=== PATIENT | female | born 1975 | race Caucasian/White ===

== ENCOUNTER 2023-11-15 18:17 | Emergency (ER) | payer OTHER, SELFPAY ==
[2023-11-15 18:20] VITALS: BP 160/100; BMI 21.0
[2023-11-15 18:56] VITALS: BP 160/96
[2023-11-15 19:00] VITALS: BP 147/101
[2023-11-15 19:23] LABS: % Basophils 0.3 % (0-2); % Eosinophils 0.4 % (0-6); % Immature Granulocytes 0.5 % (0-0.5); % Lymphocytes 18.9 % (20.5-51.1); % Monocytes 7.8 % (1.7-9.3); % Neutrophils 72.1 % (42.2-75.2); Absolute Eosinophils 0.1 10^3/uL (0-0.7); Absolute Immature Granulocytes 0.1 10^3/uL (0-0.05); Absolute Lymphocytes 2.5 10^3/uL (1.2-3.4); Absolute Neutrophils 9.5 10^3/uL (1.4-6.5); Hematocrit 35.4 % (37.0-47.0); Hemoglobin 12.6 g/dL (12.0-16.0); Mean Corp Hgb Conc. 35.6 g/dL (33.0-37.0); Mean Corpuscular Volume 89.8 fL (81.0-99.0); Nucleated Red Blood Cells % 0 %; Platelet Count 262 10^3/uL (130-400); Red Blood Cell Count 3.94 10^6/uL (4.20-5.40); Red Cell Dist. Width 13.1 % (11.5-14.5); White Blood Cell Count 13.1 10^3/uL (4.8-10.8)
[2023-11-15 19:33] LABS: ALT (SGPT) 15 U/L (0-35); AST (SGOT) 21 U/L (14-36); Albumin 4.5 g/dl (3.5-5.0); Alkaline Phosphatase 41 U/L (38-126); Blood Urea Nitrogen 21 mg/dl (7-17); Calcium 10.4 mg/dl (8.4-10.2); Carbon Dioxide 19 mmol/L (22-30); Chloride 105 mmol/L (98-107); Estimated Creatinine Clearance 91 ml/min; Glucose 97 mg/dl (70-99); Potassium 3.7 mmol/L (3.5-5.1); Sodium 136 mmol/L (135-145); Total Bilirubin 0.6 mg/dl (0.2-1.3); Total Protein 7.1 g/dl (6.3-8.2); eGFR > 60.00
[2023-11-15 19:38] LABS: Troponin I < 0.012 ng/ml
[2023-11-15 20:00] VITALS: BP 131/97
--- NOTE | 2023-11-15 20:37 | ED.GENMED ---
History of Present Illness
General
Chief Complaint: Chest Pain
Source: patient and significant other
Exam Limitations: none
Time Seen by Provider: 11/15/23 18:48
Nursing documentation reviewed up to this point in time: agreed with
Travel History
Have you had any contact with someone who has COVID-19?: No
Do you have any symptoms of coronavirus? Fever > 100 degrees, chills, cough, shortness of breath, sore throat, loss of taste or smell, muscle aches, or headache?: No
History of Present Illness
History of Present Illness:
Patient is a 48 yo female who denies significant past medical history who presents to the emergency department accompanied by her significant other for evaluation of chest pain and elevated blood pressure. Patient reports she has had intermittent
mild left sided chest discomfort over the past few weeks. Patient reports that she was at work today, and the chest pain seemed worse. She reports it is located over the left anterior chest. Patient denies radiation down her arms, denies any
numbness or tingling of her extremities. Patient reports that she also felt a little nauseated and a little diaphoretic. She notes that she had a headache while she was at work earlier, although that has since resolved. Patient reports that she
tried to relax at home, but decided to check her blood pressure and found it to be elevated to 170's/110's. Patient reports that her blood pressure is usually normal and she became concerned and decided to come to the emergency department for
further evaluation. Patient denies similar symptoms in the past. Patient reports she went to a [employer] once in 2018 for chest pain. At that time, she had an EKG and echocardiogram which was reportedly normal. Patient was told that she had a
pulled muscle which eventually resolved. Patient denies she has been to a leaf fat [employer] since then. Patient denies she has ever had a stress test or cardiac catheterization. Patient denies family history of CAD or sudden cardiac . Patient
denies recent lower extremity edema, hemoptysis, exogenous hormone use, recent prolonged period of immobility.
Past History
Past History
ED Past Medical History: Other (anemia)
ED Past Surgical History: Gynecological
Social History
Tobacco: Smoker
Alcohol: None
Drug: None
Personal: Single
Review of Systems
Review of Systems
Allergies reviewed?: Yes
All Other Systems: ROS reviewed and negative except as documented in HPI and ROS
Constitutional: Reports no symptoms
EENT: Reports no symptoms
Respiratory: Reports no symptoms
Cardiac: Reports chest pain and diaphoresis
ABD/GI: Reports nausea; Denies abdominal pain or vomiting
: Reports no symptoms
Musculoskeletal: Reports no symptoms
Skin: Reports no symptoms
Neurological: Reports no symptoms
Endocrine: Reports no symptoms
Hematologic/Lymphatic: Reports no symptoms
Psychiatric: Reports no symptoms
Phy Exam
General Physical Exam
General Presentation: well appearing and no apparent distress
General Skin: warm and dry
General Habitus: normal
General Mental: alert
General Hydration: appears well hydrated
ENT Exam
ENT Exam: EOMI, pharynx normal, neck supple and normocephalic
Eye Exam
Eye Exam: PERRL, cornea clear and conjunctiva normal
Cardiovascular Exam
Cardiovascular Exam: regular rate/rhythm, no edema, no murmur and normal peripheral pulses
Pulmonary Exam
Pulmonary Exam: lungs clear, no respiratory distress, no rales, no crackles, no rhonchi, no stridor, no wheezing and no cough
Gastrointestinal Exam
Gastrointestinal Exam: normal bowel sounds, non tender, soft, no organomegaly, no pulsatile mass and non distended
Neurological Exam
Neurological Exam: alert, oriented x3, no motor deficits and speech normal
Musculoskeletal Exam
Musculoskeletal Exam: full ROM, no edema and other ((+) ttp to the left anterior chest wall which reproduces the pt's pain, no crepitus, no deformity, no ecchymosis)
Skin Exam
Skin Exam: normal color, warm/dry, no rash and no petechia
Psychiatric Exam
Psychiatric Exam: normal mood/affect
Scores
Heart Score for Chest Pain Patients
STEMI patient?: No
History: Slightly or Non-Suspicious
ECG: Normal
Age: >45 - <65 years
Risk Factors: 1 or 2 Risk Factors
Troponin: </= Normal Limit
Heart Score for Chest Pain Patients: 2
Heart Score Risk: 2.5% MACE over next 6 weeks
Course
Orders/Labs/Results
Orders:
Orders
11/15/23 18:17
ECG [Electrocardiogram (*1)] Urgent
Reason for Study: Chest Pain
11/15/23 18:18
EKG- Treatment ONCE
11/15/23 19:08
Complete Blood Count/With Diff Urgent
Comprehensive Metabolic Panel Urgent
Troponin I Urgent
11/15/23 19:35
CR Chest - 2 Views Urgent
Comment:
Reason For Exam: chest pain
Abnormal Lab Results
11/15/23
19:08
WBC 13.1 H 10^3/uL
(4.8-10.8)
RBC 3.94 L 10^6/uL
(4.20-5.40)
Hct 35.4 L %
(37.0-47.0)
MCH 32.0 H pg
(27.0-31.0)
Abs Immat Gran (auto) 0.1 H 10^3/uL
(0-0.05)
Absolute Neuts (auto) 9.5 H 10^3/uL
(1.4-6.5)
Absolute Monos (auto) 1.0 H 10^3/uL
(0.1-0.6)
Lymphocytes % 18.9 L %
(20.5-51.1)
Carbon Dioxide 19 L mmol/L
(22-30)
BUN 21 H mg/dl
(7-17)
Calcium 10.4 H mg/dl
(8.4-10.2)
11/15/23 19:08
11/15/23 19:08
Vital Signs
Initial and Last Documented VS:
Initial Vital Signs
Temp Pulse Resp BP Pulse Ox
98.2 F 81 16 160/100 100
11/15/23 18:20 11/15/23 18:20 11/15/23 18:20 11/15/23 18:20 11/15/23 18:20
Last Documented Vital Signs
Temp Pulse Resp BP Pulse Ox
98.2 F 73 11 133/91 98
11/15/23 18:20 11/15/23 21:15 11/15/23 21:15 11/15/23 21:00 11/15/23 21:15
*Critical Care Note
Total Time (30-74mins, 75-104mins- exclusive of procedures): Not Applicable
Update Note
Update Note:
48 yo male p/w left sided chest pain intermittent over the past few days, but more constant today and associated with nausea, diaphoresis, and elevated blood pressure reading at home. Pt feels improved on arrival to the emergency department, but
notes some persistent chest pain. On arrival, pt is hypertensive, afebrile. On exam, pt is well-appearing and in NAD, she has a normal cardiopulmonary exam, she has a benign abdomen, she is neurologically intact. EKG was obtained and demonstrates
no acute ischemic changes, no dysrhythmia. Labs were obtained and are non-actionable, patient has a negative troponin. CXR demonstrates NAD. Case discussed with ED attending, patient has a low risk HEART score, she has no risk factors for PE.
Patient is safe for discharge to home with instructions on supportive care, close outpatient follow-up with PCP, along with return precautions. She expressed understanding of the plan and agreed.
ED Attending Note
-
Portions of this chart may have been created with voice recognition software.� Occasional wrong word or��sound alike� substitutions may have occurred due to the inherent limitations of voice recognition software.
Discharge Plan
Departure
Patient Disposition: Home (Routine Discharge)
Date of Disposition: 11/15/23
Time of Disposition: 20:48
Patient with high blood pressure during this ER visit?: Yes
Condition: Good
Covid-19: Not Applicable
Discharge Problem:
Chest pain
Instructions: Chest Pain PCP Follow Up
Prescriptions:
Discontinued
polyethylene glycol 3350 17 GRAMS powder in packet
17 grams PO DAILY
oxycodone-acetaminophen 5 MG/325 MG tablet
1 - 2 tab PO Q4HPRN PRN (Reason: moderate pain) Qty: 30 0RF
naproxen sodium 550 MG tablet
550 mg PO Q8HPRN PRN (Reason: pain) Qty: 20 0RF
hydrocodone-acetaminophen 1 TABLET tablet
1 tab PO Q4HPRN PRN (Reason: severe pain) Qty: 8 0RF
amoxicillin-pot clavulanate 1 TABLET tablet
1 tab PO Q12 Qty: 20 0RF
No Action
ascorbic acid (vitamin C) [Vitamin C] 500 MG tablet
500 mg PO DAILY
docusate sodium 100 MG capsule
100 mg PO DAILY
ayzpbgyi-iipw-YK-calcium-mins [Women's Daily Caplet] 1 EACH tablet
1 ea PO DAILY
Iron
1 tab PO DAILY
Referrals:
Columba Lewis DO [Family Provider] - Follow up in 2-3 days
Activity Restrictions/Additional Instructions:
You were seen in the emergency department for evaluation of chest pain and elevated blood pressure readings. While you were in the emergency department, you had blood work, an EKG, and chest x-ray. No dangerous abnormalities were found and we
believe it is safe for you to be discharged to home. It is important to follow-up with your doctor for a blood pressure recheck and to determine if you need additional testing. Please return to the emergency department for worsening chest pain,
shortness of breath, abdominal pain, vomiting, fever greater than 100.4F, or for any other worsening or concerning symptoms.
Interventions
Interventions:
*Risk Screen - Suicide Last Done: 11/15/23 18:20
*General Assessment Last Done: 11/15/23 18:52
*Neglect/Abuse Screening Last Done: 11/15/23 18:20
ED- Fall Risk Assessment Last Done: 11/15/23 18:52
*ED COVID-19 Vaccine History Last Done: 11/15/23 18:20
*Nursing Disposition Last Done: 11/15/23 21:28
ED- Cardiac Assessment Last Done: 11/15/23 18:52
Discharge Date and Time
Discharge Date/Time: 11/15/23 21:29
Print Language: URUGUAYAN
[2023-11-15 21:00] VITALS: BP 133/91
== END 2023-11-15 21:29 | disposition home or self-care (01) ==
LOC: EMR 18:17
PROVIDERS: EMERGENCY PHYSICIAN Student in an Organized Health Care Education/Training Program; FAMILY PHYSICIAN Family Medicine
DX: R07.9 Chest pain, unspecified (principal); R11.0 Nausea; R61 Generalized hyperhidrosis; R51.9 Headache, unspecified; F17.200 Nicotine dependence, unspecified, uncomplicated; R03.0 Elevated blood-pressure reading, without diagnosis of hypertension
CPT/HCPCS: 99285; 71046; 80053; 84484; 85025; 93005

== ENCOUNTER 2024-03-22 22:09 | Emergency (ER) | payer OTHER, SELFPAY ==
[2024-03-22 22:19] VITALS: BP 170/106
--- NOTE | 2024-03-22 22:25 | ED.GENMED ---
History of Present Illness
General
Chief Complaint: Head Injury
Source: patient and spouse
Exam Limitations: altered mental status
Time Seen by Provider: 03/22/24 22:19
Nursing documentation reviewed up to this point in time: agreed with except (Patient struck on right forehead)
History of Present Illness
History of Present Illness:
This is a 48-year-old woman who has no significant past medical history who was playing [employer] with her significant other, they both jumped up at the same time and his elbow came down and inadvertently struck his on the right side of her
forehead. They both immediately fell to the ground but she remained awake the whole time, did not lose consciousness. She has suffered a large contusion right forehead and she is brought to the ED by with concern for significant confusion,
lethargy. She admits to moderate pain right forehead and admits to 'not feeling right' she complains of nausea but has had no vomiting. She denies neck pain nor back pain, she denies weakness of her arms nor legs.
She takes no medicines on a daily basis.
Status post hysterectomy several years ago.
Both she and her were drinking alcohol tonight but she denies daily alcohol use. No drug use.
Past History
Past History
ED Past Medical History: Other (anemia)
ED Past Surgical History: Gynecological
Social History
Tobacco: Smoker
Alcohol: Occasional
Drug: None
Personal: Single
Living: with family (Resides with her significant other)
Employment: Employed
Family History
Family History: Unable to obtain
Phy Exam
Physical Exam
Physical Exam:
TRAUMA EXAM:
VITAL SIGNS: Vital signs reviewed, cooperative. 48-year-old woman appears her stated age, she is awake but mildly drowsy, oriented x 2, following simple commands and answering simple questions. Easily distracted.
DISTRESS: Appears in mild distress. Moderate odor of alcohol to the patient's breath.
EYES: Pupils reactive, extraocular muscles intact, no orbital trauma
NOSE: No deformity or epistaxis
FACE AND SCALP: There is a large soft tissue contusion/hematoma right forehead that is moderately tender to palpation. Skin is intact. External canals no blood
NECK: Supple, no step-off deformity, no palpable tenderness.
BACK: Back nontender, pelvis stable to compression
RESPIRATORY: No distress, breath sounds normal, no tender chest wall
CARDIAC: No murmur, pulses equal and strong
ABDOMEN: Soft nontender bowel sounds normal
SKIN: Skin intact no bleeding, color normal
EXTREMITIES: Nontender
NEUROLOGICAL: Awake, mildly drowsy, oriented x 2, motor strength is 5/5 bilaterally. Gross sensation is intact.
PSYCH: Mood affect normal
Course
Orders/Labs/Results
Orders:
Orders
03/22/24 22:15
CT Head W/o Iv Contrast Urgent
Comment:
Reason For Exam: head injury
03/22/24 22:20
CT Cervical Spine W/o Iv Contr Urgent
Comment:
Reason For Exam: head injury-lethargy
0.9% Sodium Chloride 1000 ml [Nss] 1,000 ml IV 250 mls/hr
03/22/24 22:33
Ice Pack-Treatment DIRECTED
Location: Forehead
03/22/24 22:44
Alcohol Urgent
CBC/With Diff [Complete Blood Count/With Diff] Urgent
CMP [Comprehensive Metabolic Panel] Urgent
03/22/24 23:24
Urinalysis Reflex To Culture Urgent
Date Specimen was Collected: 03/22/24
Time Specimen was Collected: 23:23
Urine Drug Abuse Screen Urgent
Date Specimen was Collected: 03/22/24
Time Specimen was Collected: 23:23
03/23/24 00:02
Ibuprofen [Motrin] 400 mg .ROUTE .STK-MED ONE
03/23/24 00:05
Ibuprofen [Motrin] 400 mg PO NOW STA
Abnormal Lab Results
03/22/24 03/22/24
22:44 23:24
WBC 13.0 H 10^3/uL
(4.8-10.8)
MCH 32.3 H pg
(27.0-31.0)
Abs Immat Gran (auto) 0.1 H 10^3/uL
(0-0.05)
Absolute Neuts (auto) 8.4 H 10^3/uL
(1.4-6.5)
Absolute Monos (auto) 0.8 H 10^3/uL
(0.1-0.6)
Chloride 108 H mmol/L
(98-107)
Carbon Dioxide 19 L mmol/L
(22-30)
Calcium 10.4 H mg/dl
(8.4-10.2)
Albumin 5.1 H g/dl
(3.5-5.0)
U Marijuana (THC) Screen Positive H
(Negative)
03/22/24 22:44
03/22/24 22:44
Vital Signs
Initial and Last Documented VS:
Initial Vital Signs
Temp Pulse Resp BP Pulse Ox
97.9 F 102 24 170/106 98
03/22/24 22:19 03/22/24 22:19 03/22/24 22:19 03/22/24 22:19 03/22/24 22:19
Last Documented Vital Signs
Temp Pulse Resp BP Pulse Ox
97.9 F 85 20 126/89 98
03/22/24 22:19 03/23/24 01:25 03/23/24 01:25 03/23/24 01:25 03/23/24 01:25
MDM/Problems Addressed
Differential Diagnosis Includes:
Concern for acute intracranial injury, due to mild lethargy, significant for head trauma, concern for cervical spine injury thus will check CT of the head/CT cervical spine.
Concern for alcohol intoxication as contributing to altered mental status. Will check labs including EtOH.
Vital signs significant for moderate hypertension, mild sinus tachycardia. This may be pain/trauma related, alcohol related, intracranial injury related.
*Radiology
Radiology exam reviewed: radiology read reviewed
*Pulse Oximetry
Patient hypoxic: no
*[employer] Interpretation
Rate: tachycardiac
Interpretation: abnormal
Rhythm: sinus
*Critical Care Note
Total Time (30-74mins, 75-104mins- exclusive of procedures): Not Applicable
Update Note
Update Note:
CT of the head and cervical spine are unremarkable.
Labs show mildly elevated white blood cell count, mild metabolic acidosis, alcohol level 163.
UDS positive only for marijuana.
With tincture of time patient is bright and alert, easily communicative, has ambulated to and from the bathroom with steady gait. She does admit to feeling somewhat shaky with ambulation but able to ambulate without assistance.
Patient has suffered a closed head injury with concussion but CTs are reassuring and she continues to have no focal neuro deficits.
She is scheduled to work today, Monday, March 23 and recommend she stay home from work. A note has been provided.
Recommend rest over the next several days, stay well-hydrated, Tylenol versus ibuprofen as needed for headache, aches.
And prompt follow-up with PCP for recheck this week.
ED Attending Note
-
Portions of this chart may have been created with voice recognition software.� Occasional wrong word or��sound alike� substitutions may have occurred due to the inherent limitations of voice recognition software.
Discharge Plan
Departure
Patient Disposition: Home (Routine Discharge)
Date of Disposition: 03/23/24
Time of Disposition: 02:01
Patient with high blood pressure during this ER visit?: No
Condition: Good
Discharge Problem:
Contusion of forehead, Closed head injury, Concussion
Instructions: Concussion, Adult (DC), Head Injury in Adults (DC)
Prescriptions:
No Action
No Current Medications
0
Referrals:
Columba Lewis, [Family Provider] - Follow up in 2-3 days
Stand Alone Forms: Return to Work
Interventions
Interventions:
*General Assessment Last Done: 03/22/24 22:35
*Neglect/Abuse Screening Last Done: 03/22/24 22:35
ED- Fall Risk Assessment Last Done: 03/22/24 22:35
ED- Neurological Assessment Last Done: 03/22/24 22:30
ED-Skin Assessment Last Done: 03/22/24 22:35
Discharge Date and Time
Print Language: INDONESIAN
[2024-03-22] MEDS: NSS 1000 IV (22:30)
[2024-03-22 22:51] LABS: % Basophils 0.7 % (0-2); % Eosinophils 1.5 % (0-6); % Immature Granulocytes 0.4 % (0-0.5); % Lymphocytes 26.6 % (20.5-51.1); % Monocytes 6.3 % (1.7-9.3); % Neutrophils 64.5 % (42.2-75.2); Absolute Basophils 0.1 10^3/uL (0-0.2); Absolute Eosinophils 0.2 10^3/uL (0-0.7); Absolute Immature Granulocytes 0.1 10^3/uL (0-0.05); Absolute Lymphocytes 3.4 10^3/uL (1.2-3.4); Absolute Monocytes 0.8 10^3/uL (0.1-0.6); Absolute Neutrophils 8.4 10^3/uL (1.4-6.5); Hematocrit 39.6 % (37.0-47.0); Hemoglobin 14.2 g/dL (12.0-16.0); Mean Corp Hgb Conc. 35.9 g/dL (33.0-37.0); Mean Corpuscular Hgb 32.3 pg (27.0-31.0); Mean Corpuscular Volume 90.2 fL (81.0-99.0); Mean Platelet Volume 9.6 fL (7.4-10.4); Nucleated Red Blood Cells % 0 %; Platelet Count 282 10^3/uL (130-400); Red Blood Cell Count 4.39 10^6/uL (4.20-5.40)
[2024-03-22 22:58] VITALS: BP 150/98
[2024-03-22 23:00] VITALS: BP 152/96
[2024-03-22 23:03] LABS: ALT (SGPT) 17 U/L (0-35); AST (SGOT) 29 U/L (14-36); Albumin 5.1 g/dl (3.5-5.0); Alcohol 163 mg/dl; Alkaline Phosphatase 47 U/L (38-126); Blood Urea Nitrogen 13 mg/dl (7-17); Calcium 10.4 mg/dl (8.4-10.2); Carbon Dioxide 19 mmol/L (22-30); Chloride 108 mmol/L (98-107); Glucose 90 mg/dl (70-99); Potassium 4.7 mmol/L (3.5-5.1); Sodium 142 mmol/L (135-145); Total Bilirubin 1.1 mg/dl (0.2-1.3); Total Protein 7.7 g/dl (6.3-8.2); eGFR > 60.00
[2024-03-22 23:38] LABS: Urine Albumin Negative (Neg - Trace); Urine Bilirubin Negative (Negative); Urine Character Clear (Clear); Urine Color Yellow; Urine Glucose Negative (Negative); Urine Ketone Negative (Negative); Urine Leukocyte Negative (Negative); Urine Nitrite Negative (Negative); Urine Occult Blood Negative (Negative); Urine Urobilinogen Negative (Neg - 1+)
[2024-03-22 23:44] LABS: Amphetamines Negative (Negative); Barbiturates Negative (Negative); Benzodiazepines Negative (Negative); Buprenorphine Negative (Negative); Cocaine Negative (Negative); Marijuana Positive (Negative); Methadone Negative (Negative); Methamphetamines Negative (Negative); Opiates Negative (Negative); Phencyclidine Negative (Negative); Tricyclic Antidepressants Negative (Negative)
[2024-03-22 23:48] VITALS: BP 141/90
[2024-03-22 23:55] VITALS: BP 125/96
[2024-03-23] MEDS: MOTRIN 400 MG PO (00:06)
[2024-03-23 01:25] VITALS: BP 126/89
[2024-03-23 02:04] VITALS: BP 131/94
== END 2024-03-23 02:40 | disposition home or self-care (01) ==
LOC: EMR 22:09
PROVIDERS: EMERGENCY PHYSICIAN Emergency Medicine; FAMILY PHYSICIAN Family Medicine
DX: S06.0X0A Concussion without loss of consciousness, initial encounter (principal); S00.83XA Contusion of other part of head, initial encounter; W50.0XXA Accidental hit or strike by another person, initial encounter; F17.200 Nicotine dependence, unspecified, uncomplicated
CPT/HCPCS: 99284; 96360; 70450; 72125; 80053; 80306; 81003; 82077; 85025